=== PATIENT | male | born 1960 | race African-American/Black ===

== ENCOUNTER 2021-05-11 19:42 | Inpatient (IN) | payer OTHER ==
[~2021-05-11] VITALS: Ht 185.4 cm; Wt 110.7 kg
[~2021-05-11 19:42] MED LIST: ZOSYN IVPB 3.375 G in IV D5W 50ml IV ONE
--- NOTE | 2021-05-11 20:45 | NUR ---
[facility]IBRA C/O ABNORMAL LABS. WBC: 16.5 NO N/V/D BREATHING EVEN AND UNLABORED DENIES ANY PAIN. PLACED ON THE MONITOR ALL VSS. MD WAS AT BEDSIDE FOR EVAL
[2021-05-11 22:26] LABS: BILIRUBIN,URINE NEGATIVE (NEGATIVE); COLOR,URINE YELLOW (YELLOW); LEUKOCYTE ESTERASE ,URINE NEGATIVE (NEGATIVE); NITRITE, URINE NEGATIVE (NEGATIVE); PROTEIN,URINE TRACE mg/dl (NEGATIVE); UGLUCOSE NEGATIVE (NEGATIVE)
[2021-05-11 22:32] LABS: BASOPHILS # (AUTO) 0.2 K/uL (0.0-0.2); BASOPHILS % (AUTO) 0.8 % (0.0-2.0); EOSINOPHILS % (AUTO) 1.6 % (0.0-6.0); HEMATOCRIT 38 % (39-51); HEMOGLOBIN 11.8 g/dL (13.5-17.5); LYMPHOCYTES # (AUTO) 9.4 K/uL (0.8-4.8); MEAN CORPUSCULAR HGB CONC 31 g/dl (31.0-36.0); MEAN CORPUSCULAR VOLUME 74 fL (80-96); MONOCYTES # (AUTO) 1.6 K/uL (0.1-1.30); MONOCYTES % (AUTO) 8.3 % (2.0-12.0); NEUTROPHILS # (AUTO) 8.1 K/uL (1.8-8.9); NEUTROPHILS % (AUTO) 41.3 % (43.0-81.0); PLATELET COUNT (AUTO) 441 K/uL (150-450); WHITE BLOOD COUNT (AUTO) 19.7 K/uL (4.3-11.0)
[2021-05-11 22:35] LABS: CALCIUM, SERUM 10.1 mg/dL (8.5-10.1); CARBON DIOXIDE 25 mmol/L (21-32); CHLORIDE 103 mmol/L (98-107); CREATININE 1.1 mg/dL (0.6-1.3); GLUCOSE 111 mg/dL (74-106); POTASSIUM 3.7 mmol/L (3.5-5.1); SODIUM SERUM 138 mmol/L (136-145); UREA NITROGEN, BLOOD 19 mg/dL (7-18)
--- NOTE | 2021-05-11 22:36 | NUR ---
DIRECTOR OF PRODUCT MANAGEMENT AT PT'S BEDSIDE
[2021-05-11 22:41] LABS: ALANINE AMINOTRANSFERASE 22 U/L (12-78); ALBUMIN 3.3 g/dL (3.4-5.0); ALKALINE PHOSPHATASE 88 U/L (46-116); ASPARTATE AMINOTRANSFERASE 12 U/L (15-37); BILIRUBIN,DIRECT 0.1 mg/dL (0.0-0.2); BILIRUBIN,TOTAL 0.3 mg/dL (0.2-1.0); TOTAL PROTEIN, SERUM 6.5 g/dL (6.4-8.2)
[2021-05-11] MEDS ORDERED: IBUP-1955 PO (22:54)
[2021-05-11] MEDS ORDERED: PIPERACILLIN /TAZOBACTAM 3.375 G VIAL IV ONE (22:58)
[2021-05-11] MEDS ORDERED: IV NS 0.9% 1,000 ML BAG IV ONE (23:00)
[2021-05-11] MEDS ORDERED: PIPERACILLIN /TAZOBACTAM 3.375 G in IV D5W 50 ML IV ONE (23:00)
--- NOTE | 2021-05-11 23:05 | NUR ---
CALLED NURSING SUP FOR ROOM ASSIGNMENT.
[2021-05-11 23:06] LABS: EOSINOPHILS % (MANUAL) 1 % (0-4); LYMPHOCYTES % (MANUAL) 46 % (16-48); MONOCYTES % (MANUAL) 5 % (0-11.0); NEUTROPHILS % (MANUAL) 47 (42-76); REACTIVE LYMPHOCYTES 1 % (0-0)
--- NOTE | 2021-05-11 23:11 | NUR ---
EPIC PANEL PAGED
--- NOTE | 2021-05-11 23:11 | NUR ---
MRSA SWAB COLLECTED AND SENT TO LAB. PATIENT'S BELONGINGS LIST DONE.
--- NOTE | 2021-05-11 23:45 | NUR ---
REPORT GIVEN TO MARII
[2021-05-12] MEDS ORDERED: ACETAMINOPHEN 325 MG TABLET PO PRN
[2021-05-12] MEDS ORDERED: Z GUARD REMEDY 2 OZ OINT TP PRN
[2021-05-12] MEDS ORDERED: PIPERACILLIN /TAZOBACTAM 3.375 G in IV D5W 50 ML IV SCH
[2021-05-12] MEDS ORDERED: ONDANSETRON HCL/PF 4 MG/2 ML VIAL IVP PRN
[2021-05-12] MEDS ORDERED: DEXTROSE 50%-WATER 50 ML DISP.SYRIN IV PRN
--- NOTE | 2021-05-12 00:35 | NUR ---
PT TRANSPORTED TO ROOM 104 ON MONITOR PER ACLS PROTOCOL WITHOUT INCIDENT.
--- NOTE | 2021-05-12 00:50 | NUR ---
RN NOTE RECEIVED A MALE PATIENT FROM ER. REPORT GIVEN BY NGHIA RIZO. PATIENT ALERT AND ORIENTED X4. ABLE TO MAKE NEEDS KNOWN. BREATHING EVEN AND UNLABORED AT THIS TIME. NO SOB NOTED. NO COUGH/CONGESTION NOTED. TOLERATING ROOM AIR WITH SATURATION OF 96 PERCENT. HOB ELEVATED 35 DEGREES. SKIN WARM AND DRY. DENIES FEELING CONSTIPATION AND PAIN DURING URINATION. PATIENT STATES HE IS CONTINENT. DOES NOT USE A URINAL. NOTED WITH IV 22G ON LEFT HAND. PATENT WITH GOOD BLOOD RETURN. KEPT CLEAN AND DRY. ALL NEEDS ATTENDED. CALL LIGHT WITHIN REACH. WILL CONTINUE TO MONITOR.
[2021-05-12 01:00] VITALS: BP 150/93
[2021-05-12] MEDS: IV NS 0.9% 1,000 ML IV PRN ×2 (01:21→22:05)
[2021-05-12 04:00] VITALS: BP 157/94
[2021-05-12 06:27] LABS: BASOPHILS # (AUTO) 0.1 K/uL (0.0-0.2); BASOPHILS % (AUTO) 0.6 % (0.0-2.0); HEMATOCRIT 35 % (39-51); HEMOGLOBIN 11.2 g/dL (13.5-17.5); LYMPHOCYTES # (AUTO) 9.4 K/uL (0.8-4.8); LYMPHOCYTES % (AUTO) 53.6 % (20.0-44.0); MEAN CORPUSCULAR HGB CONC 32 g/dl (31.0-36.0); MEAN CORPUSCULAR VOLUME 73 fL (80-96); MONOCYTES # (AUTO) 1.4 K/uL (0.1-1.30); MONOCYTES % (AUTO) 7.9 % (2.0-12.0); NEUTROPHILS # (AUTO) 6.3 K/uL (1.8-8.9); NEUTROPHILS % (AUTO) 35.9 % (43.0-81.0); PLATELET COUNT (AUTO) 431 K/uL (150-450); RED BLOOD CELL COUNT(AUTO) 4.86 MIL/uL (4.5-6.0); WHITE BLOOD COUNT (AUTO) 17.5 K/uL (4.3-11.0)
[2021-05-12] MEDS ORDERED: ENOXAPARIN SODIUM 40 MG/0.4 ML DISP.SYRIN SQ SCH ×2 (07:04)
[2021-05-12 07:24] LABS: THYROID STIMULATING HORMONE 2.161 uIU/mL (0.358-3.74)
--- NOTE | 2021-05-12 07:30 | NUR ---
RN Opening Notes Patient is A & O X4. Patient denies any pain at this time. No significant findings upon morning assessments. Patient's blood glucose level was checked at 0730, results are 102 mg/dL, no insulin required at this time per sliding scale order. Patient is eating breakfast with the best at the lowest position and call light within reach. Left hand 22G IV access is patent with no signs of infiltration, NS running at 75 ml/hr. Patient will be continuously monitored for any changes throughout the shift.
[2021-05-12] MEDS: BLOOD SUGAR DIAGNOSTIC 1 EACH STRIP IN SCH ×4 (07:35→22:01)
[2021-05-12 08:00] VITALS: BP 155/91
--- NOTE | 2021-05-12 08:01 | NUR ---
ZOSYN ATB SCHEDULE FOR 10AM.
[2021-05-12] MEDS ORDERED: NEOM1OIN15 TP (08:38)
[2021-05-12] MEDS ORDERED: METO100T7 PO (08:38)
[2021-05-12] MEDS ORDERED: LOSA50TA39 PO (08:38)
[2021-05-12] MEDS ORDERED: NA P133E RC (08:38)
[2021-05-12] MEDS ORDERED: ATOR40TA PO (08:38)
[2021-05-12] MEDS ORDERED: AMLO-212 PO (08:38)
[2021-05-12] MEDS ORDERED: SENN-261 PO (08:38)
[2021-05-12] MEDS ORDERED: ACET-868 PO (08:38)
[2021-05-12] MEDS ORDERED: METF-440 PO (08:38)
[2021-05-12] MEDS ORDERED: ZINC56.713 TP (08:38)
[2021-05-12] MEDS ORDERED: BISA10SU11 RC (08:38)
[2021-05-12] MEDS ORDERED: MULT-447 PO (08:38)
[2021-05-12] MEDS ORDERED: APIX5TAB PO (08:38)
[2021-05-12] MEDS ORDERED: INSU100V7 SQ (08:38)
[2021-05-12] MEDS ORDERED: MAGN400O6 PO (08:38)
[2021-05-12] MEDS: PIPERACILLIN /TAZOBACTAM 3.375 G in IV D5W 100 ML IV SCH ×2 (09:09→18:05)
[2021-05-12] MEDS: IBUPROFEN 600 MG TABLET PO SCH ×3 (09:09→16:23)
[2021-05-12 09:37] LABS: ALBUMIN 3.2 g/dL (3.4-5.0); BILIRUBIN,TOTAL 0.3 mg/dL (0.2-1.0); CALCIUM, SERUM 9.9 mg/dL (8.5-10.1); CREATININE 0.9 mg/dL (0.6-1.3); MAGNESIUM 1.8 mg/dL (1.8-2.4); PHOSPHORUS 2.4 mg/dL (2.5-4.9); POTASSIUM 3.8 mmol/L (3.5-5.1); TOTAL PROTEIN, SERUM 6.3 g/dL (6.4-8.2)
[2021-05-12] MEDS: INSULIN REGULAR, HUMAN 100 UNIT/ML 3 ML VIAL SQ PRN ×2 (12:58→18:01)
[2021-05-12] MEDS ORDERED: BISACODYL SUPP (10 MG) 10 MG/SUPP.RECT SUPP.RECT RC ONE (13:30)
[2021-05-12] MEDS ORDERED: MAGNESIUM HYDROXIDE 30 ML UDC PO ONE (13:30)
[2021-05-12] MEDS ORDERED: DOCUSATE SODIUM 100 MG CAPSULE PO ONE (13:30)
[2021-05-12] MEDS ORDERED: MAGNESIUM HYDROXIDE 30 ML UDC PO PRN (13:30)
[2021-05-12] MEDS ORDERED: K PHOS NEUTRAL 250 MG TABLET PO ONE (15:30)
[2021-05-12 16:00] VITALS: BP 166/94
--- NOTE | 2021-05-12 18:01 | NUR ---
RN NOTES BLOOD SUGAR TAKEN WITH RESULTS OF 83. NO INSULIN GIVEN PER SLIDING SCALE.
--- NOTE | 2021-05-12 19:00 | NUR ---
RN CLOSING NOTES PATIENT HAD A BOWEL MOVEMENT AND STOOL SAMPLE WAS COLLECTED AND SENT TO LAB. PATIENT IS A&O X4. NO SIGNS SEPSIS NOTED. TEMPERATURE IS AT 97.1. IV REMAINS PATENT WITH NO SIGNS OF INFILTRATION. IV CURRENTLY RUNNING WITH NS AT 75 ML/HR. PATIENT EXPRESSES NO PAIN. GLUCOSE TAKEN AT 1700 WITH RESULTS OF 83, NO INSULIN GIVEN PER SLIDING SCALE. PATIENT IS CURRENTLY AWAKE IN BED AT THE LOWEST POSITION WITH THE CALL LIGHT IN REACH. WILL ENDORSE TO BUTTON RECLAIMER NURSE.
[2021-05-12 19:57] VITALS: BP 149/105
[2021-05-12 20:00] VITALS: BP 149/105
--- NOTE | 2021-05-12 20:11 | NUR ---
RN NOTE PATIENT ALERT AND ORIENTED X4. ABLE TO MAKE NEEDS KNOWN. ON ROOM AIR, NO S/S OF RESPIRATORY DISTRESS. DENIES ANY PAIN AT THIS TIME. IV ACCESS ON LEFT HAND #22 INFUSING NS @ 75ML/HR. BED LOCKED AND IN LOWEST POSITION. CALL LIGHT WITHIN REACH. ALL NEEDS ANTICIPATED.
[2021-05-12] MEDS: DOCUSATE SODIUM 100 MG CAPSULE PO SCH (21:56)
[2021-05-12] MEDS: *INSULIN REGULAR(HUMULIN R)HUM 100 UNIT/ML VIAL SQ PRN (22:01)
[2021-05-13] MEDS: PIPERACILLIN /TAZOBACTAM 3.375 G in IV D5W 100 ML IV SCH ×3 (02:10→17:29)
[2021-05-13 04:00] VITALS: BP 159/104
[2021-05-13 04:49] VITALS: BP 159/104
--- NOTE | 2021-05-13 06:24 | NUR ---
RN NOTE PATIENT ALERT AND ORIENTED X4. ON ROOM AIR O2 SAT 96%. DENIES ANY PAIN AT THIS TIME. IV ACCESS ON LEFT HAND #22 INFUSING NS @ 75ML/HR. RECEIVED PHONE CALL FROM LAB, STOOL COLLECTION FOR OVA AND PARASITE NEEDS HALF OF THE CONTAINER. NO BM DURING THIS SHIFT. WILL ENDORSE TO AM SHIFT. BED LOCKED AND IN LOWEST POSITION. CALL LIGHT WITHIN REACH.
[2021-05-13] MEDS: IBUPROFEN 600 MG TABLET PO SCH ×3 (08:10→16:07)
[2021-05-13] MEDS: BLOOD SUGAR DIAGNOSTIC 1 EACH STRIP IN SCH ×4 (08:10→21:41)
--- NOTE | 2021-05-13 08:53 | NUR ---
RN NOTE MESSAGED SUPERVISOR GROWER GIDEON SWEENEY TO RECONCILE HOME MEDS FOR PT HIS BP IS 171/99. WILL FOLLOW UP
[2021-05-13] MEDS ORDERED: BISACODYL SUPP (10 MG) 10 MG/SUPP.RECT SUPP.RECT RC PRN (09:00)
[2021-05-13] MEDS: ZINC OXIDE 56.7 GM TUBE TP SCH (09:00)
[2021-05-13] MEDS ORDERED: ACETAMINOPHEN 325 MG TABLET PO PRN (09:00)
[2021-05-13] MEDS ORDERED: MAGNESIUM HYDROXIDE 30 ML UDC PO PRN (09:00)
[2021-05-13] MEDS: METFORMIN 500 MG TABLET PO SCH ×2 (09:31→16:07)
[2021-05-13] MEDS: AMLODIPINE BESYLATE 5 MG TABLET PO SCH (09:31)
[2021-05-13] MEDS: LOSARTAN POTASSIUM 50 MG TABLET PO SCH ×2 (09:31→16:07)
[2021-05-13] MEDS: APIXABAN 5 MG TABLET PO SCH ×2 (09:34→16:08)
[2021-05-13] MEDS: INSULIN GLARGINE, 100 UNIT/ML CARTRIDGE SQ SCH ×2 (10:11→21:57)
[2021-05-13 11:42] LABS: BASOPHILS # (AUTO) 0.1 K/uL (0.0-0.2); BASOPHILS % (AUTO) 0.8 % (0.0-2.0); EOSINOPHILS % (AUTO) 2.3 % (0.0-6.0); HEMATOCRIT 36 % (39-51); HEMOGLOBIN 11.2 g/dL (13.5-17.5); LYMPHOCYTES # (AUTO) 7.3 K/uL (0.8-4.8); LYMPHOCYTES % (AUTO) 54.1 % (20.0-44.0); MEAN CORPUSCULAR HGB CONC 31 g/dl (31.0-36.0); MEAN CORPUSCULAR VOLUME 73 fL (80-96); MONOCYTES # (AUTO) 1.2 K/uL (0.1-1.30); MONOCYTES % (AUTO) 9.2 % (2.0-12.0); NEUTROPHILS # (AUTO) 4.5 K/uL (1.8-8.9); NEUTROPHILS % (AUTO) 33.6 % (43.0-81.0); PLATELET COUNT (AUTO) 419 K/uL (150-450); RED BLOOD CELL COUNT(AUTO) 4.97 MIL/uL (4.5-6.0); WHITE BLOOD COUNT (AUTO) 13.5 K/uL (4.3-11.0)
[2021-05-13 12:00] VITALS: BP 171/99
[2021-05-13 12:29] LABS: CALCIUM, SERUM 9.6 mg/dL (8.5-10.1); CREATININE 0.8 mg/dL (0.6-1.3); MAGNESIUM 2.1 mg/dL (1.8-2.4); PHOSPHORUS 2.4 mg/dL (2.5-4.9); POTASSIUM 3.8 mmol/L (3.5-5.1)
[2021-05-13 12:58] LABS: EOSINOPHILS % (MANUAL) 1 % (0-4); LYMPHOCYTES % (MANUAL) 54 % (16-48); MONOCYTES % (MANUAL) 7 % (0-11.0); NEUTROPHILS % (MANUAL) 38 (42-76)
[2021-05-13] MEDS ORDERED: K PHOS NEUTRAL 250 MG TABLET PO ONE (15:30)
--- NOTE | 2021-05-13 19:30 | NUR ---
RN NOTE RECEIVED PATIENT IN BED. A/OX4. TOLERATING ROOM AIR. RESPIRATIONS ARE EVEN AND UNLABORED. NO S/S SOB NOTED. NO C/O PAIN AT THIS TIME. IN NO APPARENT DISTRESS. IV ACCESS IN LEFT HAND #22 RUNNING ZOSYN@25/HR. BED IS LOW AND LOCKED, HOB ELEVATED IN SEMI FOWLERS, SIDE RAILS UP X2, CALL LIGHT WITHIN REACH.
[2021-05-13 20:00] VITALS: BP 141/87
[2021-05-13] MEDS: DOCUSATE SODIUM 100 MG CAPSULE PO SCH (21:41)
[2021-05-13] MEDS: *INSULIN REGULAR(HUMULIN R)HUM 100 UNIT/ML VIAL SQ PRN (21:56)
[2021-05-13] MEDS ORDERED: ATORVASTATIN 40 MG TABLET PO SCH (22:00)
[2021-05-13] MEDS ORDERED: SENNOSIDES 8.6 MG TABLET PO SCH (22:00)
[2021-05-14] MEDS: IV NS 0.9% 1,000 ML IV PRN (00:55)
[2021-05-14] MEDS: PIPERACILLIN /TAZOBACTAM 3.375 G in IV D5W 100 ML IV SCH ×2 (01:00→10:02)
[2021-05-14 04:00] VITALS: BP 132/87
--- NOTE | 2021-05-14 06:42 | NUR ---
RN NOTE PATIENT RESTING IN BED. A/OX4. REMAINS TOLERATING ROOM AIR. NO RESP DISTRESS. MANAGED PAIN WITH TYLENOL. NO DISTRESS. LEFT HAND #22 RUNNING NS@75ML/HR. BED REMAINS LOW AND LOCKED, HOB ELEVATED IN SEMI FOWLERS, SIDE RAILS UP X2, CALL LIGHT WITHIN REACH. WILL ENDORSE TO ONCOMING SHIFT.
[2021-05-14] MEDS: BLOOD SUGAR DIAGNOSTIC 1 EACH STRIP IN SCH ×3 (07:30→17:05)
--- NOTE | 2021-05-14 07:33 | NUR ---
RN OPENING NOTE PATIENT RECEIVED IN BED, RESTING, A&OX4. PATIENT ON ROOM AIR WITH NO SIGNS OF LABORED BREATHING AT THIS TIME. LEFT HAND 22G PIV IN PLACE, PATENT WITH NO SIGNS OF INFILTRATION RUNNING NS AT 100CC/HR. NO SIGNS OF DISTRESS NOTED AT THIS TIME. BED LOCKED AND IN LOWEST POSITION, CALL LIGHT WITHIN REACH, 3 SIDE RAILS UP. ALL SAFETY MEASURES IMPLEMENTED. WILL CONTINUE TO MONITOR.
[2021-05-14 08:11] LABS: BASOPHILS # (AUTO) 0.1 K/uL (0.0-0.2); BASOPHILS % (AUTO) 0.9 % (0.0-2.0); EOSINOPHILS % (AUTO) 2.5 % (0.0-6.0); HEMATOCRIT 36 % (39-51); HEMOGLOBIN 11.1 g/dL (13.5-17.5); LYMPHOCYTES # (AUTO) 8.1 K/uL (0.8-4.8); LYMPHOCYTES % (AUTO) 56.3 % (20.0-44.0); MEAN CORPUSCULAR HGB CONC 31 g/dl (31.0-36.0); MEAN CORPUSCULAR VOLUME 74 fL (80-96); MONOCYTES # (AUTO) 1.3 K/uL (0.1-1.30); MONOCYTES % (AUTO) 9.1 % (2.0-12.0); NEUTROPHILS # (AUTO) 4.5 K/uL (1.8-8.9); NEUTROPHILS % (AUTO) 31.2 % (43.0-81.0); PLATELET COUNT (AUTO) 447 K/uL (150-450); RED BLOOD CELL COUNT(AUTO) 4.91 MIL/uL (4.5-6.0); WHITE BLOOD COUNT (AUTO) 14.3 K/uL (4.3-11.0)
[2021-05-14 08:33] LABS: CALCIUM, SERUM 9.6 mg/dL (8.5-10.1); CREATININE 0.9 mg/dL (0.6-1.3); PHOSPHORUS 2.8 mg/dL (2.5-4.9); POTASSIUM 3.4 mmol/L (3.5-5.1)
[2021-05-14] MEDS: ZINC OXIDE 56.7 GM TUBE TP SCH (08:34)
[2021-05-14] MEDS: AMLODIPINE BESYLATE 5 MG TABLET PO SCH (08:35)
[2021-05-14] MEDS: LOSARTAN POTASSIUM 50 MG TABLET PO SCH ×2 (08:35→16:43)
[2021-05-14] MEDS: IBUPROFEN 600 MG TABLET PO SCH ×3 (08:36→16:41)
[2021-05-14] MEDS: METFORMIN 500 MG TABLET PO SCH ×2 (08:36→16:42)
[2021-05-14] MEDS: INSULIN GLARGINE, 100 UNIT/ML CARTRIDGE SQ SCH (08:37)
[2021-05-14] MEDS: APIXABAN 5 MG TABLET PO SCH ×2 (08:37→16:43)
[2021-05-14] MEDS ORDERED: NEOMY SULF/BACITRAC ZN/POLY 15 GM TUBE TP SCH (09:00)
[2021-05-14] MEDS ORDERED: METOPROLOL SUCCINATE 50 MG TAB.SR.24H PO SCH (09:00)
[2021-05-14] MEDS ORDERED: MULTIVIT W/MINERALS 1 TAB TABLET PO SCH (09:00)
[2021-05-14] MEDS ORDERED: POTASSIUM CHLORIDE 20 MEQ TAB.PRT.SR PO SCH (11:00)
[2021-05-14 16:43] VITALS: BP 148/96
--- NOTE | 2021-05-14 18:38 | NUR ---
RN NOTE PATIENT DISCHARGED PER ORDER. PATIENT TAKEN BY AMBULANCE CREW BACK TO [facility], REPORT GIVEN TO JUSTYNA. PATIENT MEDICALLY STABLE AT THE TIME OF DISCHARGE, ON ROOM AIR WITH NO SIGNS OF LABORED BREATHING.
== END 2021-05-14 18:15 | DRG 422 ==
LOC: ER 19:44 → TELE1 23:09 → MEDSG1 05-12 08:31
PROVIDERS: ADMIT Nurse Practitioner Acute Care; ATTEND Registered Nurse
DX: E86.0 Dehydration (principal); E87.2 Acidosis; R65.10 Systemic inflammatory response syndrome (SIRS) of non-infectious origin without acute organ dysfunction; D50.9 Iron deficiency anemia, unspecified; D72.820 Lymphocytosis (symptomatic); I48.91 Unspecified atrial fibrillation; I12.9 Hypertensive chronic kidney disease with stage 1 through stage 4 chronic kidney disease, or unspecified chronic kidney disease; N18.9 Chronic kidney disease, unspecified; Z20.822 Contact with and (suspected) exposure to COVID-19; J44.9 Chronic obstructive pulmonary disease, unspecified; Z95.0 Presence of cardiac pacemaker; Z87.81 Personal history of (healed) traumatic fracture; Z74.09 Other reduced mobility; Z85.05 Personal history of malignant neoplasm of liver; Z96.642 Presence of left artificial hip joint; Z79.4 Long term (current) use of insulin; Z79.01 Long term (current) use of anticoagulants; Z79.899 Other long term (current) drug therapy; V89.2XXS Person injured in unspecified motor-vehicle accident, traffic, sequela
CPT/HCPCS: 36415; 71045-TC; 80048-TC; 80053-TC; 80061-TC; 80076-TC; 82962-TC; 83540-TC; 83605-TC; 83735-TC; 84100-TC; 84443-TC; 84484-TC; 85025-TC; 85730-TC; 87040-TC; 87045-TC; 87081-TC; 87086-TC; 87177; 87209; 89055; 93307-TC; G0378; J1650; J1815; J2543; J7030; J7060; U0003